=== PATIENT | female | born 1960 | race Hispanic/Latino ===

== ENCOUNTER 2022-02-25 16:34 | Emergency (ER) | payer OTHER ==
[~2022-02-25] VITALS: Ht 154.9 cm; Wt 115.7 kg
[~2022-02-25 16:34] MED LIST: BACTRIM; FLEXERIL; LEVAQUIN; PREDNISONE
[2022-02-25] MEDS ORDERED: KETOROLAC TROMETHAMINE 30 MG/ML VIAL IV NR (17:30)
[2022-02-25 17:43] LABS: BASOPHILS % 0.2 % (0.0-1.0); EOSINOPHILS # (AUTO) 0.2 (0.0-0.4); EOSINOPHILS % 2.2 % (0.0-6.0); HEMATOCRIT 44.7 % (34.2-44.1); HEMOGLOBIN 14.4 g/dL (12.0-16.0); LYMPHOCYTES # (AUTO) 2.8 (1.0-3.2); LYMPHOCYTES % 33.5 % (18.0-39.1); MEAN CORPUSCULAR HGB CONC 32.2 g/dL (31-35); MEAN CORPUSCULAR VOLUME 93.1 fL (81-99); MONOCYTES # (AUTO) 0.6 (0.2-0.8); MONOCYTES % 6.9 % (4.4-11.3); NEUTROPHILS # (AUTO) 4.7 (2.1-6.9); PLATELET COUNT 177 x10e3/uL (140-360); RED CELL DISTRIBUTION WIDTH 12.4 % (11.7-14.4)
[2022-02-25 17:45] LABS: CLARITY,URINE SL CLOUDY (CLEAR); COLOR,URINE YELLOW (YELLOW); KETONES,URINE NEGATIVE (NEGATIVE); LEUKOCYTE ESTERASE ,URINE NEGATIVE (NEGATIVE); NITRITE,URINE NEGATIVE (NEGATIVE); PROTEIN,URINE DIPSTICK 1+ (NEGATIVE); URINE UROBILINOGEN 1 mg/dL (0.2 - 1)
[2022-02-25 17:57] LABS: ALBUMIN 3.7 g/dL (3.5-5.0); ALBUMIN/GLOBULIN RATIO 0.9 (0.8-2.0); ANION GAP 15.6 mmol/L (8-16); BACTERIA,URINE FEW /HPF; CALCIUM 8.9 mg/dL (8.4-10.2); CREATININE, SERUM 0.86 mg/dL (0.57-1.11); EPITHELIAL CELLS,URINE FEW /LPF; POTASSIUM 3.6 mmol/L (3.5-5.1)
[2022-02-25] MEDS ORDERED: NAPROSYN500 MG PO (19:01)
[2022-02-25] MEDS ORDERED: METHOCARBAMOL500 MG PO (19:01)
[2022-02-25 19:30] VITALS: BP 127/85
== END 2022-02-25 19:32 | disposition home or self-care (01) ==
LOC: ER 17:07
DX: M54.50 Low back pain, unspecified (principal)
CPT/HCPCS: 36415; 74176; 80053; 81001; 85025; 99284; J1885